=== PATIENT | female | born 2000 | race Caucasian/White ===

== ENCOUNTER 2022-01-20 09:21 | Emergency (ER) | payer MEDICAID ==
[~2022-01-20] VITALS: Ht 160 cm; Wt 75.0 kg
[2022-01-20] MEDS ORDERED: ONDANSETRON 4MG ODT PO ONE (10:45)
[2022-01-20 11:07] LABS: BASOPHILS % 0.3 % (0.0-2.0); EOSINOPHILS % 0.2 % (0.0-5.0); HEMATOCRIT. 34.1 % (36.0-48.0); LYMPHOCYTES % 14.7 % (20.0-50.0); MEAN CORPUSCULAR VOLUME 80.4 fL (81.0-99.0); MEAN PLATELET VOLUME 9.2 fl (7.4-10.4); MONOCYTES % 7.3 % (2.0-8.0); NEUTROPHILS % 77.5 % (40.0-76.0); PLATELET 175 x1000/uL (130-400); RED BLOOD CELL COUNT 4.24 mill/uL (4.2-5.4); RED CELL DISTRIBUTION WIDTH 16.3 % (11.6-14.6)
[2022-01-20 11:15] LABS: CHLORIDE 107 mEq/L (98-107)
[2022-01-20 11:28] LABS: CLARITY URINE CLOUDY (CLEAR); COLOR URINE YELLOW (YELLOW); KETONES URINE NEGATIVE (NEGATIVE); LEUKOCYTE ESTERASE URINE TRACE (NEGATIVE); NITRITE URINE NEGATIVE (NEGATIVE); OCCULT BLOOD URINE NEGATIVE (NEGATIVE); PROTEIN URINE NEGATIVE (NEGATIVE); SPECIFIC GRAVITY URINE 1.018 (1.005-1.030); UROBILINOGEN URINE 0.2 E.U./dL (0.2-1.0)
[2022-01-20 11:39] LABS: B-HCG QUANTITATIVE 11048 mIU/mL (<3)
[2022-01-20] MEDS ORDERED: NITR100C PO (12:06)
[2022-01-20 13:15] VITALS: BP 97/57
== END 2022-01-20 13:15 | disposition home or self-care (01) ==
LOC: ER 09:21
DX: O23.42 Unspecified infection of urinary tract in pregnancy, second trimester (principal); N39.0 Urinary tract infection, site not specified; Z98.890 Other specified postprocedural states; Z3A.24 24 weeks gestation of pregnancy
CPT/HCPCS: 36415; 76805; 80053; 81003; 81025; 84702; 85025; 86850; 86900; 86901; 99284; Q0162

== ENCOUNTER 2022-04-20 22:56 | Inpatient (IN) | payer MEDICAID ==
[~2022-04-20] VITALS: Ht 162.6 cm; Wt 80.5 kg
[~2022-04-20 22:56] MED LIST: NITR100C PO
[2022-04-21] MEDS ORDERED: RHO(D) IMMUNE GLOBULIN 300 MCG/SYR IM ONE (01:30)
[2022-04-21] MEDS ORDERED: CARBOPROST TROMETHAMINE 250 MCG/ML AMPUL IM PRN (01:30)
[2022-04-21] MEDS ORDERED: OXYTOCIN 30 UNITS/500ML NS PMX 500 ML IV SCH (01:30)
[2022-04-21] MEDS ORDERED: NALOXONE HCL 0.4 MG/ML 1ML VIAL IM PRN (01:30)
[2022-04-21] MEDS ORDERED: METHYLERGONOVINE MALEATE 0.2 MG/ML IM PRN (01:30)
[2022-04-21] MEDS ORDERED: BUTORPHANOL TARTRATE 2 MG/ML VIAL IV PRN ×2 (01:30→13:15)
[2022-04-21] MEDS ORDERED: MISOPROSTOL 100MCG TABLET VG SCH (01:30)
[2022-04-21] MEDS: LACTATED RINGERS 1,000 ML IV SCH ×3 (02:14→11:02)
[2022-04-21 02:42] LABS: BASOPHILS % 0.3 % (0.0-2.0); EOSINOPHILS % 0.3 % (0.0-5.0); HEMATOCRIT. 30.9 % (36.0-48.0); LYMPHOCYTES % 25.4 % (20.0-50.0); MEAN CORPUSCULAR HEMOGLOBIN 23.6 pg (28.0-32.0); MEAN CORPUSCULAR VOLUME 72.7 fL (81.0-99.0); MEAN PLATELET VOLUME 10.3 fl (7.4-10.4); MONOCYTES % 8.5 % (2.0-8.0); NEUTROPHILS % 65.5 % (40.0-76.0); PLATELET 152 x1000/uL (130-400); RED BLOOD CELL COUNT 4.25 mill/uL (4.2-5.4); RED CELL DISTRIBUTION WIDTH 17.8 % (11.6-14.6)
[2022-04-21 02:45] LABS: CLARITY URINE CLEAR (CLEAR); COLOR URINE YELLOW (YELLOW); KETONES URINE NEGATIVE (NEGATIVE); LEUKOCYTE ESTERASE URINE TRACE (NEGATIVE); NITRITE URINE NEGATIVE (NEGATIVE); OCCULT BLOOD URINE NEGATIVE (NEGATIVE); PH URINE 6.5 (4.5-8.0); PROTEIN URINE NEGATIVE (NEGATIVE); SPECIFIC GRAVITY URINE 1.004 (1.005-1.030); UROBILINOGEN URINE 0.2 E.U./dL (0.2-1.0)
[2022-04-21] MEDS ORDERED: FERR325T6 PO (03:18)
[2022-04-21] MEDS ORDERED: PNV1TABL76 PO (03:18)
[2022-04-21 03:22] LABS: *AMPHETAMINES SCREEN URINE NEGATIVE (NEGATIVE); *BARBITURATES SCREEN URINE NEGATIVE (NEGATIVE); *BENZODIAZEPINES SCREEN URINE NEGATIVE (NEGATIVE); *COCAINE SCREEN URINE NEGATIVE (NEGATIVE); CANNABINOID URINE SCREEN NEGATIVE (NEGATIVE); METHADONE URINE SCREEN NEGATIVE (NEGATIVE); OPIATES URINE SCREEN NEGATIVE (NEGATIVE); PHENCYCLIDINE URINE SCREEN NEGATIVE (NEGATIVE)
[2022-04-21 03:44] LABS: HEPATITIS B SURFACE ANTIGEN NEGATIVE
[2022-04-21 06:15] LABS: INR 0.9; PARTIAL THROMBOPLASTIN TIME 30.2 sec (23.4-31.0); PROTHROMBIN TIME 9.9 sec (9.6-11.0)
[2022-04-21] MEDS ORDERED: CEFAZOLIN SODIUM 1000MG/VIAL ONE (07:04)
[2022-04-21] MEDS ORDERED: FENTANYL CITRATE/PF 50MCG/ML 2ML VIAL ONE (07:04)
[2022-04-21] MEDS ORDERED: OXYTOCIN 10 UNITS/ML 1ML ONE (07:04)
[2022-04-21] MEDS ORDERED: DIPHENHYDRAMINE 50MG/ML VIAL ONE (07:05)
[2022-04-21] MEDS ORDERED: MORPHINE SULFATE/PF 1MG/ML 10ML AMP ONE (07:05)
[2022-04-21] MEDS ORDERED: ONDANSETRON HCL 4MG/2ML INJ ONE (07:05)
[2022-04-21] MEDS ORDERED: KETOROLAC 60MG/2ML VIAL IM ONE (12:25)
[2022-04-21] MEDS: OXYTOCIN 30 UNITS/500ML NS PMX 500 ML IV SCH ×2 (13:15→17:15)
[2022-04-21] MEDS ORDERED: DIPHENHYDRAMINE 50MG/ML VIAL IV PRN (13:15)
[2022-04-21] MEDS ORDERED: HEMORRHOIDAL SUPP PR PRN (13:15)
[2022-04-21] MEDS ORDERED: IBUPROFEN 400MG TABLET PO PRN (13:15)
[2022-04-21] MEDS ORDERED: RHO(D) IMMUNE GLOBULIN 300 MCG/SYR IM PRN (13:15)
[2022-04-21] MEDS ORDERED: BISACODYL 10MG SUPP PR PRN (13:15)
[2022-04-21] MEDS ORDERED: ONDANSETRON HCL 4MG/2ML INJ IV PRN (13:15)
[2022-04-21] MEDS ORDERED: NALOXONE HCL 0.4 MG/ML 1ML VIAL IV PRN (13:15)
[2022-04-21] MEDS ORDERED: DIPHENHYDRAMINE 25MG CAPSULE PO PRN (13:15)
[2022-04-21] MEDS ORDERED: LANOLIN OINT 7GM TUBE TOP PRN (13:15)
[2022-04-21 16:00] VITALS: BP 112/76
[2022-04-21 17:00] VITALS: BP 110/59
[2022-04-21 20:00] VITALS: BP 105/59
[2022-04-21] MEDS: KETOROLAC 30MG/ML VIAL IV SCH (20:06)
[2022-04-21] MEDS: MAGNESIUM/ALUMINUM HYDROXIDE/SIMETHICONE 30ML UDC PO SCH (21:00)
[2022-04-21] MEDS: SIMETHICONE 80MG TABLET CHEW PO SCH (23:21)
[2022-04-21] MEDS: DOCUSATE SODIUM 100MG CAPSULE PO SCH (23:21)
[2022-04-22] VITALS: BP 110/70
[2022-04-22] MEDS: KETOROLAC 30MG/ML VIAL IV SCH (02:21)
[2022-04-22 04:00] VITALS: BP 107/60
[2022-04-22 07:33] LABS: BASOPHILS % 0.4 % (0.0-2.0); EOSINOPHILS % 0.4 % (0.0-5.0); HEMATOCRIT. 26.7 % (36.0-48.0); HEMOGLOBIN. 8.7 g/dL (12.0-16.0); LYMPHOCYTES % 13.2 % (20.0-50.0); MEAN CORPUSCULAR HEMOGLOBIN 24.1 pg (28.0-32.0); MEAN CORPUSCULAR VOLUME 73.8 fL (81.0-99.0); MEAN PLATELET VOLUME 9.4 fl (7.4-10.4); MONOCYTES % 6.6 % (2.0-8.0); NEUTROPHILS % 79.4 % (40.0-76.0); PLATELET 130 x1000/uL (130-400); RED BLOOD CELL COUNT 3.62 mill/uL (4.2-5.4); RED CELL DISTRIBUTION WIDTH 17.7 % (11.6-14.6)
[2022-04-22 08:00] VITALS: BP 121/58
[2022-04-22] MEDS: MAGNESIUM/ALUMINUM HYDROXIDE/SIMETHICONE 30ML UDC PO SCH ×4 (08:15→21:29)
[2022-04-22] MEDS: SIMETHICONE 80MG TABLET CHEW PO SCH ×4 (08:16→21:29)
[2022-04-22] MEDS: FERROUS SULFATE 325MG TABLET PO SCH ×3 (08:16→17:06)
[2022-04-22] MEDS: PRENATAL VIT/FE FUMARATE/FA TABLET PO SCH (08:16)
[2022-04-22] MEDS: IBUPROFEN 800MG TABLET PO PRN ×3 (11:27→23:30)
[2022-04-22] MEDS: ACETAMINOPHEN WITH CODEINE 300/30MG TABLET PO PRN ×2 (13:56→21:30)
[2022-04-22 16:00] VITALS: BP 107/49
[2022-04-22 20:00] VITALS: BP 113/79
[2022-04-22] MEDS: DOCUSATE SODIUM 100MG CAPSULE PO SCH (21:29)
[2022-04-22] MEDS ORDERED: TETANUS, DIPHTHERIA, PERTUSSIS VAC/PF 0.5ML (>10YR OLD) IM ONE (22:30)
[2022-04-22] MEDS ORDERED: INFLUENZA VACCINE 05/PF 0.5 ML SYRINGE IM ONE (22:30)
[2022-04-23] MEDS: ACETAMINOPHEN WITH CODEINE 300/30MG TABLET PO PRN ×2 (02:55→16:47)
[2022-04-23 03:55] VITALS: BP 110/70
[2022-04-23] MEDS: IBUPROFEN 800MG TABLET PO PRN ×3 (06:43→21:02)
[2022-04-23 08:00] VITALS: BP 103/70
[2022-04-23] MEDS: FERROUS SULFATE 325MG TABLET PO SCH ×3 (09:11→16:48)
[2022-04-23] MEDS: PRENATAL VIT/FE FUMARATE/FA TABLET PO SCH (09:11)
[2022-04-23] MEDS: MAGNESIUM/ALUMINUM HYDROXIDE/SIMETHICONE 30ML UDC PO SCH ×4 (09:12→21:00)
[2022-04-23] MEDS: SIMETHICONE 80MG TABLET CHEW PO SCH ×4 (09:12→21:01)
[2022-04-23 16:00] VITALS: BP 116/63
[2022-04-23 19:30] VITALS: BP 106/69
[2022-04-23] MEDS: DOCUSATE SODIUM 100MG CAPSULE PO SCH (21:00)
[2022-04-24 04:00] VITALS: BP 109/63
[2022-04-24 08:00] VITALS: BP 101/63
[2022-04-24] MEDS ORDERED: IBUP-2030 PO (08:26)
[2022-04-24] MEDS ORDERED: MEDROXYPROGESTERONE ACETATE 150MG/ML VIAL IM SCH (10:00)
== END 2022-04-24 13:35 | disposition home or self-care (01) | DRG 540 ==
LOC: ER 22:56 → 8 EST LDRP 22:57 → OBSVTOIN 22:57 → 8EST 04-21 18:13
PROVIDERS: ADMIT Obstetrics & Gynecology; ATTEND Obstetrics & Gynecology
PROC: 10D00Z1 Extraction of Products of Conception, Low, Open Approach (ICD-10-PCS; principal; 2022-04-22)
DX: O34.211 Maternal care for low transverse scar from previous cesarean delivery (principal); D62 Acute posthemorrhagic anemia; O90.81 Anemia of the puerperium; Z20.822 Contact with and (suspected) exposure to COVID-19; Z37.0 Single live birth; Z3A.38 38 weeks gestation of pregnancy
CPT/HCPCS: 36415; 80305; 81003; 85025; 86592; 86703; 86762; 86850; 86900; 86920; 87340; 87426; 88307; 90686; 90715; 93005; 99281; 99285; J0595; J0690; J1050; J1200; J1885; J2274; J2405; J3010; A4315; J2590